=== PATIENT | male | born 1985 | race Hispanic/Latino ===

== ENCOUNTER 2019-08-08 08:48 | Outpatient (CLI) | payer OTHER ==
--- NOTE | 2019-08-08 09:42 | ULT ---
US Gallbladder RUQ: 08/08/2019 12:00 AM CLINICAL HISTORY: Elevated LFTs. STUDY: Limited right upper quadrant ultrasound of abdomen. COMPARISON: None. FINDINGS: Liver: Size: Normal. Echogenicity: Hyperechoic consistent with hepatic steatosis. Contour: Smooth. Mass: None. Bile ducts: No intrahepatic or extrahepatic biliary dilatation. Common bile duct measures 5 mm. Gallbladder: Normal. Pancreas: Not well visualized. Right kidney: No pelvicalyceal dilatation. Right kidney measuring 10.3 cm in length. IMPRESSION: Fatty liver
== END 2019-08-08 08:49 | disposition home or self-care (01) ==
LOC: SCSULT 08:48
PROVIDERS: ATTEND Family Medicine
DX: R79.89 Other specified abnormal findings of blood chemistry (principal); K76.0 Fatty (change of) liver, not elsewhere classified
CPT/HCPCS: 76705

== ENCOUNTER 2019-12-21 08:44 | Outpatient (CLI) | payer OTHER ==
--- NOTE | 2019-12-21 11:36 | CT ---
CT ABDOMEN AND PELVIS WITH AND WITHOUT IV CONTRAST: Date: 12/21/2019 INDICATION: 34-year-old male with history of renal stones and recently passed stone in August 2019. Patient is hav ing continued hematuria. COMPARISON: CT abdomen and pelvis with and without contrast dated 08/23/2016. FINDINGS: There is prominent fatty infiltration of the liver. No definite renal or ureteral calculus is evident . No hydronephrosis is demonstrated. There is stable mild latia mesentery. The gallbladder, adrenal glands, and spleen appear within normal limits. No focal renal lesion is jordan dent. No definite filling defect is grossly evident. The unopacified large and small bowel reveal no definite acute abnormality. There is a normal appendi x in the right lower extremity. No free fluid or enlarged lymph nodes are evident. No acute osseous abnormality is evident. IMPRESSION: 1. No renal or ureteral calculus. No focal solid renal lesion demonstrated. No definite renal collec ting system lesion demonstrated. 2. Fatty liver. 3. Stable mild latia central mesentery. POS: BH
== END 2019-12-21 08:45 | disposition home or self-care (01) ==
LOC: SCSCT 08:44
PROVIDERS: ATTEND Family Medicine
DX: R31.29 Other microscopic hematuria (principal); K76.0 Fatty (change of) liver, not elsewhere classified; K66.8 Other specified disorders of peritoneum
CPT/HCPCS: 74176; 74178